=== PATIENT | male | born 1960 | race Caucasian/White ===

== ENCOUNTER 2016-05-21 07:18 | Emergency (ER) | payer BC ==
--- NOTE | 2016-05-21 07:41 | ED Physician Chart ---
Chief Complaint/HPI - Patient Information Date Seen:: 05/21/16 Time Seen:: 07:20 Chief Complaint:: abdominal pain History of Present Illness:: patient developed LLQ abdominal pain at 0400. Has been retching. No diarrhea. No dysuria. Allergies:: Allergies Allergy/AdvReac Type Severity Reaction Status Date / Time No Known Allergies Allergy Verified 05/21/16 07:34 Vitals:: Vital Signs - 8 hr 05/21/16 07:27 Temp 98 F HR 50 RR 16 BP 177/80 O2 Sat % 100 Historian:: Patient, EMS Review:: Nurse's Note Reviewed Review of Systems - Review of Systems General/Constitutional: No fever, No chills Skin: No skin lesions, No rash Head: No headache, No light-headedness Eyes: No loss of vision ENT: No earache, No sore throat Neck: No neck pain, No swelling Cardio Vascular: No chest pain Pulmonary: No SOB GI: Diarrhea, Pain, Other (retching) G/U: No dysuria, No hematuria Musculoskeletal: No bone or joint pain Endocrine: No polyuria, No polydipsia Psychiatric: No prior psych history, No depression Hematopoietic: No bruising Allergic/Immuno: No urticaria Neurological: No syncope, No focal symptoms Past Medical History - Past Medical History Past Medical History: Arthritis, Other (diverticulitis) Family History: None Social History: Non Smoker, Alcohol, Other (quit smoking two weeks ago; drinks alcohol 2-3 times per week) Surgical History: other (left ankle for fracture; two hernia repairs) Psychiatricy History: None Medication: Reviewed Family Medical History - Family Member Mother History Unknown: Yes Physical Exam - Physical Examination General/Constitutional: Well-developed, well-nourished, Alert Other Gen/Cons comments:: moderate distress with abdominal pain Head: Atraumatic Eyes: Lids, conjuctiva normal, PERRL Skin: Nl inspection, No rash, No skin lesions, No ecchymosis ENMT: External ears, nose nl, Nasal exam nl Other ENMT comments:: dentures Neck: No nuchal rigidity Respiratory: Nl effort/Exclusion, Clear to Auscultation Cardio Vascular: RRR GI: No organomegaly, No hernia, Normal BS's, Nondistended, No mass/bruits, No McBurney tenderness Other GI comments:: left sided abdominal tenderness Extremities: No edema, Normal digits & nails Neuro/Psych: Mood normal, No focal deficits Misc: Normal back Labs/Radiology/EKG Results - Lab Results Comments:: Laboratory Results - last 24 hr 05/21/16 05/21/16 07:35 07:35 WBC 5.4 RBC 4.47 Hgb 15.3 Hct 43.7 MCV 97.7 MCH 34.3 H MCHC Differential 35.1 RDW 12.4 Plt Count 141 L MPV 7.7 Neutrophils % 68.3 Lymphocytes % 22.8 Monocytes % 6.9 Eosinophils % 1.4 Basophils % 0.6 Sodium 135 L Potassium 4.1 Chloride 104 Carbon Dioxide 21.8 Anion Gap 13.3 BUN 18 Creatinine 0.9 Est GFR ( Amer) > 60.0 Est GFR (Non-Af Amer) > 60.0 BUN/Creatinine Ratio 20.0 Glucose 154 H Calcium 9.6 Magnesium 1.9 Lipase 12 - Radiology Results Results: Abdominal US: mild left hydronephrosis suggestive of ureteral calculus. CT scan : 3-4 mm calculus at left UVJ; Assessment - Assessment General Assessment: patient meets the criteria for admission ( ureteral calculus plus UTI) but this hospital has no urologist on staff. Tried to notify PCP Dr. Christiano James but office closed for lunch. Will call again after 1300. states they will go directly home. ED Septic Shock - . Is Septic Shock (SBP<90, OR Lactate>4 mmol\L) present?: No - <6hrs of presentation: Vital Signs: Vital Signs - 8 hr 05/21/16 07:27 Temp 98 F HR 50 RR 16 BP 177/80 O2 Sat % 100 Reassessment (Disposition) - Reassessment Reassessment:: Patient got marked relief of pain with toradol 15 mg IV but at about 1220 pain began to come back. Will repeat same dose. - Diagnosis Diagnosis:: left ureteral calculus; urinary tract infection - Aftercare/Follow up Instructions Aftercare/Follow-Up Instructions:: Refer to Discharge Instructions Medication Prescribed:: Tramadol 50 mg #20 Sig 1 QID; Cipro 500 mg Sig 1 BID for one week. - Patient Disposition Discharge/Transfer:: Home Condition at Disposition:: Stable, Improved
[2016-05-21 07:47] LABS: % BASOPHILS 0.6 % (0.0-2.0); % EOSINOPHILS 1.4 % (0.0-5.0); % LYMPHOCYTES 22.8 % (20.0-50.0); % MONOCYTES 6.9 % (2.0-10.0); % NEUTROPHILS 68.3 % (40.0-80.0); HEMATOCRIT 43.7 % (39.0-49.0); HEMOGLOBIN 15.3 gm/dL (13.2-17.3); MEAN CELL VOLUME 97.7 fl (80-99); MEAN CORPUSCULAR HEMOGLOBIN 34.3 pg (26.0-30.0); MEAN CORPUSCULAR HGB CONC 35.1 pg (28.0-36.0); MEAN PLATELET VOLUME 7.7 fl; NEUTROPHILE ABSOLUTE 3.7 Th/cmm (1.8-8.0); PLATELET COUNT 141 Th/cmm (150-400); RED BLOOD COUNT 4.47 Mil/cmm (4.30-5.70); RED CELL DISTRIBUTION WIDTH 12.4 % (11.5-20.0); WHITE BLOOD COUNT 5.4 Th/cmm (4.8-10.8)
[2016-05-21 08:00] LABS: ANION GAP 13.3 (7.0-16.0); BUN - UREA NITROGEN 18 mg/dL (7-25); CALCIUM SERUM 9.6 mg/dL (8.6-10.3); CARBON DIOXIDE 21.8 mEq/L (21.0-31.0); CHLORIDE 104 mEq/L (98-107); CREATININE - SERUM 0.9 mg/dL (0.7-1.3); GLUCOSE 154 mg/dL (70-105); LIPASE 12 U/L (11-82); MAGNESIUM 1.9 mg/dL (1.9-2.7); POTASSIUM SERUM 4.1 mEq/L (3.5-5.1); SODIUM SERUM 135 mEq/L (136-145)
[2016-05-21 09:47] LABS: URINE BILIRUBIN SMALL (NEGATIVE); URINE BLOOD MODERATE (NEGATIVE); URINE COLOR YELLOW; URINE GLUCOSE (UA) NEGATIVE (NEGATIVE); URINE KETONE >=80 mg/dL (NEGATIVE); URINE PH 6.5; URINE PROTEIN 30 mg/dL (NEGATIVE)
[2016-05-21 09:56] LABS: URINE BACTERIA FEW /hpf (NONE SEEN); URINE EPITHELIAL CELLS RARE /lpf (FEW); URINE WBC 25-50 /hpf (0-5)
--- NOTE | 2016-05-21 10:07 | Diagnostic Imaging Report ---
Ultrasound abdomen HISTORY: Abdominal pain COMPARISON: None Technique: Sonography of the abdomen was performed in multiple planes. FINDINGS: The exam is limited due to bowel gas. The liver demonstrates normal echogenicity and measures 15.8 cm. The liver margins are not well-defined, however no evidence of focal lesions. No evidence of gallstones or gallbladder wall thickening. The common bile duct measures 2 mm. Evaluation of the pancreas is limited due to bowel gas. Evaluation of the kidneys is also limited due to bowel gas. The right kidney measures 10.9 x 5.2 cm. No evidence of focal lesions or hydronephrosis. The left kidney measures 12.1 x 6.4 cm demonstrating mild hydronephrosis. Small echogenic foci of the left kidney are noted. The spleen measures 12.1 cm. IMPRESSION: Limited exam due to bowel gas. Mild left hydronephrosis with small echogenic foci within the left kidney which may represent small renal stones versus renal fat. If indicated, CT would provide for additional detail and assessment. No evidence of gallstones.
[2016-05-21] MEDS ORDERED: cefTRIAXone 1 GM in Sodium Chloride 0.9% 50 ML IV ONE (10:16)
--- NOTE | 2016-05-21 11:24 | Diagnostic Imaging Report ---
CT abdomen and pelvis without intravenous contrast Indication: Pain, UTI, ureteral calculus Comparison: Ultrasound abdomen earlier the same day, Technique: Axial images were obtained from the lung bases to the bilateral proximal femurs without IV contrast. Coronal reconstructions were made. total DLP: 703, CTDI13.8 FINDINGS: Atelectatic changes of the lung bases are seen. An air cyst versus 2.7 x 2 cm bronchiectasis of the left lung base is noted. Assessment of the solid organs is limited due to lack of IV contrast. There is fatty infiltration of the liver. No evidence of focal lesions. No focal splenic or pancreatic lesions. No focal adrenal lesions. There is a 3-4 mm stone of the left UVJ causing mild to moderate left hydronephrosis with surrounding inflammatory changes including left perinephric inflammatory changes and trace fluid. No evidence of hydronephrosis of the right kidney or evidence of right renal stones. Prostate gland calcifications are noted. Colonic diverticulosis is noted without evidence of diverticulitis. Appendix is not well-visualized. Small bilateral fat-containing hernias are noted. Moderate atherosclerosis is seen with area of ectasia of the infrarenal abdominal aorta measuring up to 2.4 cm. Small fat-containing umbilical hernia is noted. Degenerative changes of the spine and pelvis are noted. No evidence of free air. IMPRESSION: 3 to 4 mm stone of the left UVJ causing mild to moderate left hydronephrosis and left hydroureter with surrounding inflammatory changes and trace fluid along the left perinephric region. Diverticulosis without evidence of diverticulitis. Fatty liver. Atherosclerotic vascular disease with areas of ectasia of the infrarenal abdominal aorta measuring up to 2.4 cm. Focal bulla versus bronchiectasis along the left lung base incidentally noted.
== END 2016-05-21 12:50 | disposition home or self-care (01) ==
LOC: ER 07:18
DX: N20.1 Calculus of ureter (principal); N39.0 Urinary tract infection, site not specified; K57.92 Diverticulitis of intestine, part unspecified, without perforation or abscess without bleeding; M19.90 Unspecified osteoarthritis, unspecified site
CPT/HCPCS: 99285; 74176; 96365; 76700; 96375; 96376; 36415; 85025; 87086; 81001; 83690; 83735; 80048; J1885 ×2; J0696 ×2